=== PATIENT | female | born 1970 | race American Indian/Alaskan Native ===

== ENCOUNTER 2017-08-04 11:05 | Outpatient (CLI) | payer BC ==
[2017-08-04 11:11] LABS: Alanine Aminotransferase 8 units/L (7-56); Albumin 3.7 g/dL (3.9-5); BUN/Creatinine Ratio 20; Blood Urea Nitrogen 14 mg/dL (7-17); Calcium 9.3 mg/dL (8.4-10.2); Chol/HDL Ratio 2.52 %; HDL Cholesterol 73 mg/dL (40-59); Hemolysis Index 5; LDL Cholesterol,Direct 107 mg/dL (50-130)
--- NOTE | 2017-08-06 12:12 | Mammography Report ---
Screening tomomammogram and 2-D compiled mammogram imaging: The compiled 2-D images demonstrates a intermediate density fibroglandular pattern in a symmetric and unremarkable distribution. No significant findings. On the bilateral tomomammograms performed in both CC and lateral projections small circumscribed nodules are identified in the superior left breast and a single nodule in the anterior right breast. None of these have any suspicious suspicious characteristics. No additional information obtained. CAD used. Impression: Benign pattern. Recommendation: Annual mammogram followup. BI-RADS CATEGORY: 2 = Benign ACR BI-RADS MAMMOGRAPHIC CODES: 0 = Needs additional imaging evaluation; 1 = Negative; 2 = Benign; 3 = Probably benign; 4 = Suspicious; 5 = Malignant; 6 = Known biopsy-proven malignancy COMMENT: 1. Dense breast tissue, i.e., adenosis, fibrocystic changes, etc., may obscure an underlying neoplasm. 2. Approximately 10% of cancers are not detected with mammography. 3. A negative mammography report should not delay biopsy if a clinically suspicious mass is present.
== END 2017-08-04 11:06 | disposition home or self-care (01) ==
LOC: MAMMO 11:05
PROVIDERS: ATTEND Obstetrics & Gynecology
DX: Z12.31 Encounter for screening mammogram for malignant neoplasm of breast (principal)
CPT/HCPCS: 36415; 77063; 77067; 80053; 80061; 82306; 83036; 84443